=== PATIENT | male | born 1955 | race Caucasian/White ===

== ENCOUNTER 2023-03-17 15:28 | Emergency (ER) | payer OTHER ==
[~2023-03-17] VITALS: Ht 170.2 cm; Wt 79.4 kg
[2023-03-17 16:10] LABS: BASOPHILS % (AUTO) 0.3 % (0.0-2.0); EOSINOPHILS % (AUTO) 0.1 % (0.0-7.0); HEMATOCRIT 36.6 % (36.7-47.1); HEMOGLOBIN 12.4 g/dL (12.5-16.3); LYMPHOCYTES # (AUTO) 0.4 K/uL (0.8-4.8); LYMPHOCYTES % (AUTO) 5.6 % (20.5-51.5); MEAN CORPUSCULAR HEMOGLOBIN 34.8 uug (23.8-33.4); MEAN CORPUSCULAR HGB CONC 34 g/dL (32.5-36.3); MEAN CORPUSCULAR VOLUME 103.2 fL (73.0-96.2); MONOCYTES # (AUTO) 0.5 K/uL (0.1-1.30); MONOCYTES % (AUTO) 8.1 % (0.0-11.0); NEUTROPHILS # (AUTO) 5.6 K/uL (1.8-8.9); NEUTROPHILS % (AUTO) 85.9 % (38.5-71.5); PLATELET COUNT (AUTO) 95 K/uL (152-348); RED BLOOD CELL COUNT(AUTO) 3.55 MIL/uL (4.06-5.63); RED CELL DISTRIBUTION WIDTH 14.8 % (12.1-16.2); WHITE BLOOD COUNT (AUTO) 6.5 K/uL (3.6-10.2)
[2023-03-17 16:19] LABS: DIFFERENTIAL COMMENT 1
[2023-03-17 16:29] LABS: CALCIUM 9.3 mg/dL (8.5-10.1); CARBON DIOXIDE 25 mmol/L (21-32); CHLORIDE 97 mmol/L (98-107); CREATININE 1.6 mg/dL (0.6-1.3); GLUCOSE 72 mg/dL (74-106); POTASSIUM 3.8 mmol/L (3.5-5.1); SODIUM SERUM 141 mmol/L (136-145); UREA NITROGEN, BLOOD 18 mg/dL (7-18)
[2023-03-17 16:38] LABS: ALANINE AMINOTRANSFERASE 78 U/L (16-63); ALBUMIN 3.9 g/dL (3.4-5.0); ALKALINE PHOSPHATASE 111 U/L (50-136); ASPARTATE AMINOTRANSFERASE 117 U/L (15-37); BILIRUBIN,DIRECT 1.2 mg/dL (0.0-0.2); BILIRUBIN,TOTAL 2.7 mg/dL (0.2-1.0)
[2023-03-17 16:42] LABS: ETHANOL < 3 MG/DL (0-10)
[2023-03-17] MEDS ORDERED: DEXTROSE 50% 50 ML DISP.SYRIN IV ONE (18:15)
[2023-03-17] MEDS ORDERED: IV D5/ 0.9% NACL 1,000 ML IV ONE (18:15)
[2023-03-17] MEDS ORDERED: LORAZEPAM 2 MG/1 ML VIAL IV ONE ×2 (18:15→19:00)
[2023-03-17] MEDS ORDERED: LORAZEPAM 2 MG/1 ML VIAL ONE ×2 (18:32→18:59)
[2023-03-17] MEDS ORDERED: DEXTROSE 50% 50 ML DISP.SYRIN ONE (18:38)
[2023-03-17] MEDS ORDERED: THIAMINE HCL 200 MG/2 ML VIAL ONE (19:18)
[2023-03-17] MEDS ORDERED: CHLORDIAZEPOXIDE HCL 25 MG CAPSULE PO ONE (19:30)
[2023-03-17] MEDS ORDERED: MAGNESIUM SULFATE/D5W 100 ML IV SCH ×2 (19:30)
[2023-03-17] MEDS ORDERED: THIAMINE HCL 200 MG/2 ML VIAL IV ONE ×2 (19:30)
[2023-03-17] MEDS ORDERED: IV NS 1000 ML 1,000 ML IV ONE (19:30)
[2023-03-17] MEDS ORDERED: POTASSIUM BICARBONATE/CIT AC 25 MEQ TABLET.EFF PO ONE (19:30)
[2023-03-17] MEDS ORDERED: POTASSIUM BICARBONATE/CIT AC 25 MEQ TABLET.EFF ONE (19:50)
[2023-03-17] MEDS ORDERED: MAGNESIUM SULFATE/D5W 100 ML ONE (19:51)
[2023-03-17] MEDS ORDERED: CHLORDIAZEPOXIDE HCL 25 MG CAPSULE ONE (19:51)
[2023-03-17 20:41] VITALS: O2SAT 95
== END 2023-03-17 20:43 | disposition short-term general hospital (02) ==
LOC: ER 15:33
DX: F10.239 Alcohol dependence with withdrawal, unspecified (principal); E16.2 Hypoglycemia, unspecified; R51.9 Headache, unspecified; M54.2 Cervicalgia; R07.89 Other chest pain; Y90.0 Blood alcohol level of less than 20 mg/100 ml
CPT/HCPCS: 80076; 80048; 82607; 83735; 85025; 85730; 84484; 93005; 71045; 70450; 72125; 99285; 96365; 96375; 96376; 80320; 80307; J3490; J2060 ×2; J3475; J3411; J7040; 36415; A4663; G0480